=== PATIENT | female | born 1965 | race Caucasian/White ===

== ENCOUNTER → 2018-05-14 | Emergency (ER) | payer OTHER ==
[~2018-05-14] VITALS: Ht 160 cm; Wt 72.6 kg
[~2018-05-14] MED LIST: CIPRO500 MG PO; FLAGYL500MG PO; LEVOTHYROXINE25 MCG PO; LEVSIN/SL0.125 MG; LEVSIN/SL0.125 MG SL; LIBRAX PO; LOPRESSOR HCT 11 TAB; METOPROLOL TAR100 MG PO; PERCOCET 5/3251 TAB PO; POM (MEDICAMENTO EN PO; PROPRANOLOL HCL10 MG PO; SYNTHROID75 MCG; TRAMADOL HCL50 MG PO; ULTRAM50 MG PO; ZANTAC300 MG PO; ZOFRAN4 MG PO
== END | disposition home or self-care (01) ==
LOC: ER 00:26
DX: R00.2 Palpitations (principal)

== ENCOUNTER 2018-10-14 17:25 | Emergency (ER) | payer OTHER ==
[~2018-10-14] VITALS: Ht 165.1 cm; Wt 81.6 kg
== END 2018-10-14 21:04 | disposition home or self-care (01) ==
LOC: ER 17:25
DX: T78.49XA Other allergy, initial encounter (principal); R60.0 Localized edema

== ENCOUNTER 2018-12-29 15:38 | Emergency (ER) | payer OTHER ==
[~2018-12-29] VITALS: Ht 160 cm; Wt 77.1 kg
== END 2018-12-29 18:17 | disposition home or self-care (01) ==
LOC: ER 15:38
DX: R00.2 Palpitations (principal); F06.4 Anxiety disorder due to known physiological condition